=== PATIENT | female | born 1995 | race American Indian/Alaskan Native ===

== ENCOUNTER 2016-08-21 15:18 | Emergency (ER) | payer SELFPAY ==
[2016-08-21 17:09] LABS: Bacteria,Urine 1+ /HPF (Negative); Bilirubin,Urine NEG (Negative); Blood,Urine NEG (Negative); Ketones,Urine NEG (Negative); Leukocyte Esterase,Urine LG (Negative); Mucus,Urine 2+ /HPF; Nitrite,Urine NEG (Negative); Protein,Urine <15 mg/dL mg/dL (Negative)
--- NOTE | 2016-08-21 20:42 | Emergency Department Report ---
ED Female HPI - General Chief complaint: Urogenital-Female Stated complaint: YEAST INFECTION Time Seen by Provider: 08/21/16 20:22 Source: patient Mode of arrival: Ambulatory Limitations: No Limitations - History of Present Illness Initial comments: 21-year-old -[place] female with no past medical history comes in for complaint of vaginal itching redness and burning since Wednesday, complains of vaginal discharge, and rash on upper thighs and buttocks times daily. He reports that the vaginal discharge is yellow she denies any pelvic pain she is sexually active with men unprotective one partner in the last 3 months. She has 3 kids. MD Complaint: vaginal discharge, possible STD Location: labia Severity: moderate Severity scale (0 -10): 8 Are you Now?: No Associated Symptoms: vaginal discharge - Related Data Sexually active: Yes Previous Rx's Medication Instructions Recorded Last Taken Type Terconazole [Terazol 3 Vag Cream] 1 applicator VG QHS #3 cream.appl 08/21/16 Unknown Rx metroNIDAZOLE [Flagyl TAB] 500 mg PO Q8HR #21 tablet 08/21/16 Unknown Rx Allergies Allergy/AdvReac Type Severity Reaction Status Date / Time No Known Allergies Allergy Verified 08/21/16 15:38 ED Review of Systems ROS: Stated complaint: YEAST INFECTION Other details as noted in HPI Constitutional: denies: chills, fever Eyes: denies: eye pain, eye discharge, vision change ENT: denies: ear pain, throat pain Respiratory: denies: cough, shortness of breath, wheezing Cardiovascular: denies: chest pain, palpitations Endocrine: no symptoms reported Gastrointestinal: denies: abdominal pain, nausea, diarrhea Genitourinary: discharge Musculoskeletal: denies: back pain, joint swelling, arthralgia Skin: rash ED Past Medical Hx - Past Medical History Hx Hypertension: No Hx Congestive Heart Failure: No Hx Diabetes: (GESTATIONAL DIABETES) Hx Deep Vein Thrombosis: No Hx Renal Disease: No Hx Sickle Cell Disease: No Hx Seizures: No Hx Psychiatric Treatment: Yes (ANXIETY) Hx Asthma: No Hx COPD: No Hx HIV: No - Surgical History Additional Surgical History: - Social History Smoking Status: Current Every Day Smoker Substance Use Type: Alcohol - Medications Home Medications: Home Medications Medication Instructions Recorded Confirmed Last Taken Type Terconazole [Terazol 3 Vag Cream] 1 applicator VG QHS #3 cream.appl 08/21/16 Unknown Rx metroNIDAZOLE [Flagyl TAB] 500 mg PO Q8HR #21 tablet 08/21/16 Unknown Rx ED Physical Exam - General Limitations: No Limitations General appearance: alert, in no apparent distress - Head Head exam: Present: atraumatic, normocephalic - Eye Eye exam: Present: normal appearance - ENT ENT exam: Present: mucous membranes moist - Neck Neck exam: Present: normal inspection - GI/Abdominal GI/Abdominal exam: Present: soft, normal bowel sounds - External exam: Present: erythema, swelling Speculum exam: Present: erythema, vaginal discharge Bi-manual exam: Present: normal bi-manual exam - Extremities Exam Extremities exam: Present: normal inspection - Neurological Exam Neurological exam: Present: alert, oriented X3 ED Course Vital Signs 08/21/16 08/21/16 15:40 21:19 Temperature 98.3 F Pulse Rate 73 63 Respiratory 18 16 Rate Blood Pressure 108/62 Blood Pressure 113/72 [Left] O2 Sat by Pulse 100 98 Oximetry ED Medical Decision Making - Medical Decision Making Patient has been evaluated by this provider fast track. Discussed the patient that we will do a vaginal exam. We will send out a wet prep for 4 years bacteria vaginosis and Trichomonas as well as we'll send out cultures for gonorrhea and Chlamydia. Discussed the patient that we will treat her for gonorrhea and chlamydia now and based on the results from the wet prep we will treat accordingly patient verbalized understanding. Deficit patient about control. [facility] can go to [facility] for [facility] screening as well as control patient verbalized understanding. Critical care attestation.: If time is entered above; I have spent that time in minutes in the direct care of this critically ill patient, excluding procedure time. ED Disposition Clinical Impression: Bacterial vaginosis, Yeast infection of the vagina Disposition: DISCHARGED TO HOME OR SELFCARE Is pt being admited?: No Does the pt Need Aspirin: No Condition: Stable Instructions: Bacterial Vaginosis (ED) Additional Instructions: Take antibiotics and antifungal medication as prescribed. I recommend free to follow-up with the [facility] doctor or [facility] for further evaluation. Prescriptions: Terconazole [Terazol 3 Vag Cream] 1 applicator VG QHS #3 cream.appl metroNIDAZOLE [Flagyl TAB] 500 mg PO Q8HR #21 tablet Referrals: PRIMARY CARE, [Primary Care Provider] - 3-5 Days Forms: STI Treatment and Prevention, Work/School Release Form(ED)
[2016-08-21 21:20] VITALS: BP 113/72
[2016-08-21] MEDS ORDERED: XYLOCAINE 1% MPF 5 mL INFILTRATI ONE (21:24)
[2016-08-21] MEDS ORDERED: ROCEPHIN IM ONE (21:24)
== END 2016-08-21 21:50 | disposition home or self-care (01) ==
LOC: ED 15:18
DX: N76.0 Acute vaginitis (principal); B37.3 Candidiasis of vulva and vagina; F41.9 Anxiety disorder, unspecified; F17.200 Nicotine dependence, unspecified, uncomplicated
CPT/HCPCS: 81001; 81025; 82962; 87210; 87591; 96372; 99283; J0696

== ENCOUNTER 2017-01-20 02:05 | Emergency (ER) | payer MEDICAID, OTHER ==
[2017-01-20 02:33] VITALS: BP 114/70
== END 2017-01-20 06:45 | disposition left against medical advice (07) ==
LOC: ED 02:05
DX: R51 Headache (principal); Z53.21 Procedure and treatment not carried out due to patient leaving prior to being seen by health care provider

== ENCOUNTER 2018-07-20 19:34 | Outpatient (CLI) | payer MEDICAID ==
[2018-07-20] MEDS ORDERED: LACTATED RINGERS 500 ML IV ONE (21:32)
[2018-07-20] MEDS ORDERED: LACTATED RINGERS 1,000 ML ONE (21:54)
[2018-07-20 22:58] LABS: Basophils % (Auto) 0.2 % (0.0-1.8); Eosinophils % (Auto) 0.3 % (0.0-4.3); Hematocrit 32.7 % (30.3-42.9); Hemoglobin 10.7 gm/dl (10.1-14.3); Lymphocytes # (Auto) 1.6 K/mm3 (1.2-5.4); Lymphocytes % (Auto) 32.3 % (13.4-35.0); Mean Corpuscular HGB Conc 33 % (30-34); Mean Corpuscular Volume 87 fl (79-97); Monocytes # (Auto) 0.4 K/mm3 (0.0-0.8); Monocytes % (Auto) 7.6 % (0.0-7.3); Platelet Count 214 K/mm3 (140-440); Red Blood Count 3.75 M/mm3 (3.65-5.03); Red Cell Distribution Width 14.8 % (13.2-15.2)
--- NOTE | 2018-07-20 23:40 | Ultrasound Report ---
PROCEDURE: US OB BPP WO NON-STRESS TECHNIQUE: Sonographic evaluation for breathing, movement, tone, and amniotic flui d volume was performed. HISTORY: well being COMPARISONS: None . FINDINGS: FETUS Amniotic fluid volume Normal-score 2. At least one vertical pocket >2 cm or more in vertical axis . breathing: Normal-score 2 . movement: Normal-score 2 . tone: Normal-score 2 . Score: 8 of 8 . IMPRESSION: Normal biophysical profile . This document is electronically signed by Alise Lan DO., July 20 2018 11:38:35 PM ET
[2018-07-21 01:56] LABS: Amorphous Crystals,Urine 3+; Bacteria,Urine 1+ /HPF (Negative); Bilirubin,Urine NEG (Negative); Blood,Urine NEG (Negative); Color,Urine Yellow (Yellow); Mucus,Urine FEW /HPF; Protein,Urine <15 mg/dL mg/dL (Negative); Urobilinogen,Urine < 2.0 mg/dL (<2.0)
[2018-07-21] MEDS ORDERED: PERCOCET 5/325 PO PRN (02:08)
[2018-07-21 02:19] LABS: Alanine Aminotransferase 8 units/L (7-56)
[2018-07-21 07:48] VITALS: BP 107/62
--- NOTE | 2018-07-21 11:03 | Ultrasound Report ---
PROCEDURE: US OB LIMITED TECHNIQUE: Real-time limited sonographic examination was performed for evaluation of amniotic fluid volume for each fetus with image documentation (1 or more fetuses). HISTORY: well being COMPARISONS: None . FINDINGS: There is a single fetus in a vertex presentation. heart rate 1 46 bpm. 4 quadrant amniotic fluid volume 14.8 cm. No other measurements are obtained on this study. IMPRESSION: Single fetus in a vertex presentation. 4 quadrant amniotic fluid volume 14.8 cm. This document is electronically signed by Alise Lan DO., July 20 2018 11:37:55 PM ET
== END 2018-07-21 08:06 | disposition home or self-care (01) ==
LOC: TRG 19:34 → LD 19:44 → TRG 07-21 08:06
PROVIDERS: ATTEND Obstetrics & Gynecology
DX: O13.3 Gestational [pregnancy-induced] hypertension without significant proteinuria, third trimester (principal); O24.410 Gestational diabetes mellitus in pregnancy, diet controlled; O26.893 Other specified pregnancy related conditions, third trimester; R51 Headache; Z87.891 Personal history of nicotine dependence; Z3A.31 31 weeks gestation of pregnancy
CPT/HCPCS: 36415; 76815; 76819; 81001; 84450; 84460; 85025; J7120